=== PATIENT | male | born 1965 | race African-American/Black ===

== ENCOUNTER 2019-06-05 15:23 | Emergency (ER) | payer SELFPAY ==
[~2019-06-05] VITALS: Ht 190.5 cm; Wt 100.0 kg
[2019-06-05] MEDS ORDERED: BP MEDS PO (16:38)
[2019-06-05] MEDS ORDERED: LIDOCAINE 5% TRANSDERMAL PATCH TD ONE (17:00)
[2019-06-05] MEDS ORDERED: METHOCARBAMOL 500 MG TABLET PO ONE (17:00)
[2019-06-05] MEDS ORDERED: KETOROLAC TROMETHAMINE 30 MG/ML VIAL IM ONE (17:00)
[2019-06-05 18:34] VITALS: BP 130/85
== END 2019-06-05 19:06 | disposition home or self-care (01) ==
LOC: EMS 15:24
DX: M54.5 Low back pain (principal); I10 Essential (primary) hypertension; F17.210 Nicotine dependence, cigarettes, uncomplicated; V49.9XXA Car occupant (driver) (passenger) injured in unspecified traffic accident, initial encounter; Y93.89 Activity, other specified; Y92.89 Other specified places as the place of occurrence of the external cause; Y99.8 Other external cause status
CPT/HCPCS: 72131; 96372; 99284; J1885